=== PATIENT | male | born 1980 | race Caucasian/White ===

== ENCOUNTER → 2021-10-15 | Outpatient (CLI) | payer MEDICAID ==
--- NOTE | 2021-10-15 15:49 | P.SLEEP ---
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 The patient has been followed by his that he snores and he quits breathing at night. The patient is awake and up fatigue and he feels tired during the day. His current Camden score is at 7. He does not fall asleep while driving and he has not been involved in any form of motor vehicle accident because of feeling drowsy or sleepy. However, he wakes up tired and fatigued. He has a positive family history as his father and mother both have obstructive sleep apnea. No recent weight gain. He drinks alcohol occasionally. He is an ex-smoker. Does not do any form of energy drinks. He drinks one cup of coffee in the morning. He was to Medrol 9 PM, wakes at 5 AM in the morning and he has occasional nighttime arousals to use the bathroom. no sleep paralysis. No hallucinations.No hallucinations. No cataplexy. No other comorbidities. No heartburn.no nighttime chest pain or shortness of breath. No anxiety. No panic attacks. No sleepwalking. No sleep talking. No episodes of waking up choking or gasping for air. He wakes up with dry mouth. Review of Systems Constitutional: Denies chills, Denies fever Eyes: denies as per HPI, denies blurred vision, denies bulging eye, denies decreased vision, denies diplopia, denies discharge, denies dry eye, denies irritation, denies itching, denies pain, denies photophobia, denies loss of peripheral vision, denies loss of vision, denies tunnel vision/blind spots Ears: deny: decreased hearing, ear discharge, earache, tinnitus Ears, nose, mouth and throat: Reports as per HPI Breasts: absent: as per HPI, gynecomastia Respiratory: Reports snoring Gastrointestinal: Reports as per HPI Genitourinary: Reports as per HPI Musculoskeletal: Reports as per HPI Musculoskeletal: absent: ankle pain, ankle stiffness, ankle swelling Integumentary: Reports as per HPI Neurological: Reports as per HPI Psychiatric: Reports as per HPI Hematologic/Lymphatic: Reports as per HPI Allergic/Immunologic: Reports as per HPI Past Medical History Additional Past Medical History / Comment(s): negative past medical history Past Surgical History: Cholecystectomy Medications and Allergies Home Medications and Allergies Comment(s): omeprazole 20 mg by mouth on an as-needed basis Physical Exam BP is 125/86 with a pulse of 82 respirations 16 temperature 97.5 and the patient's oxygen saturations 99%, Camden score is at 7, BMI 30.7, neck circumference is 17 and 3 quarts of an inch. The patient's weight is 214 pounds. Gen. appearance the patient is calm comfortable no acute distress The patient appeared well nourished and normally developed. Vital signs as documented. Head exam is unremarkable. No scleral icterus or corneal arcus noted. Neck is without jugular venous distension, thyromegaly, or carotid bruits. Carotid upstrokes are brisk bilaterally. Lungs are clear to auscultation and percussion. Cardiac exam reveals the PMI to be normally sized and situated. Rhythm is regular. First and second heart sounds normal. No murmurs, rubs or gallops. Abdominal exam reveals normal bowel sounds, no masses, no organomegaly and no aortic enlargement. Extremities are nonedematous and both femoral and pedal pulses are normal.Examination of the skin revealed no evidence of significant rashes, suspicious appearing nevi or other concerning lesions.Neurologically, the patient is awake and alert and the patient does not have any focal neurological deficit. Cranial nerves are essentially intact. Assessment and Plan Plan: 1 chronic hypersomnia/fatigue with an Camden score of 7 in a patient with known history of snoring and witnessed apneas. The patient's discharge however. He does have some symptoms to suggest obstructive sleep apnea and the patient is coming in for further investigation and evaluation. No other major comorbidities. No recent weight gain. Body mass index is 30.7. He has a Mallampati class III. No significant overbite. Otherwise, his review of system is negative and his past medical history is also negative Plan Proceed with a screening polysomnogram sleep hygiene measures are in generally good No other major comorbidities Further recommendations to follow based on results of the sleep study Sleep Note - Sleep Note Sleep Note: Temperature: Pulse Rate: Respiratory Rate: Blood Pressure: SpO2: Height: Weight: BMI: Neck Circumference:
== END | disposition home or self-care (01) ==
LOC: SLEEP 15:06
PROVIDERS: ATTEND Internal Medicine Critical Care Medicine
DX: G47.33 Obstructive sleep apnea (adult) (pediatric) (principal)
CPT/HCPCS: 99202

== ENCOUNTER 2021-11-01 12:40 | Day surgery (SDC) | payer MEDICAID ==
[2021-10-31 08:39] VITALS: BMI 30.1
[~2021-11-01 12:40] MED LIST: LACTATED RINGERS 1,000 ML IV SCH
[2021-11-01 13:31] VITALS: TEMP 97.8
[2021-11-01] MEDS ORDERED: PROPOFOL 10 MG/ML 20 ML VIAL IV ONE (13:54)
--- NOTE | 2021-11-01 14:21 | P.PCN ---
Date of Procedure: 11/01/21 Procedure(s) Performed: BRIEF HISTORY: Patient is a 41-year-old pleasant white male scheduled for an elective colonoscopy as a part of evaluation of change in bowel habits for the last several years duration. PROCEDURE PERFORMED: Colonoscopy. PREOPERATIVE DIAGNOSIS: Change in bowel habits. IV sedation per Anesthesia. PROCEDURE: After informed consent was obtained, the patient, was brought into the endoscopy unit. IV sedation was administered by Anesthesia under continuous monitoring. Digital rectal examination was normal. Initially the Olympus CF-160 flexible video colonoscope was then inserted in the rectum, gradually advanced into the cecum without any difficulty. Careful examination was performed as the scope was gradually being withdrawn. Ileocecal valve and the appendiceal orifice were visualized and appeared normal. Prep was excellent. Mucosa of the cecum, ascending colon, transverse colon, descending colon, sigmoid colon, and rectum appeared normal. Retroflexion was performed in the rectum and no lesions were seen. The patient tolerated the procedure well. IMPRESSION: Normal-appearing colon from rectum to cecum with no evidence of colorectal neoplasia . RECOMMENDATIONS: Findings of this examination were discussed with the patient as well as his family. He was advised to have a repeat screening colonoscopy in 10 years. .
[2021-11-01 14:38] VITALS: BP 104/71; PULSE 72; RESP 17
== END 2021-11-01 15:00 | disposition home or self-care (01) ==
LOC: ORWHC2ENDO 12:40
PROVIDERS: ATTEND Internal Medicine Gastroenterology
DX: R19.4 Change in bowel habit (principal); Z88.5 Allergy status to narcotic agent; Z79.899 Other long term (current) drug therapy
CPT/HCPCS: 45378; J2704